=== PATIENT | male | born 1965 | race African-American/Black ===

== ENCOUNTER 2017-05-27 12:53 | Inpatient (IN) | payer OTHER ==
[2017-05-27 14:34] VITALS: BMI 24.7
--- NOTE | 2017-05-27 16:34 | HP ---
CIWA Score - CIWA Score Nausea/Vomitin-Mild Nausea/No Vomiting Muscle Tremors: 4-Moderate,w/Arms Extend Anxiety: 4-Mod. Anxious/Guarded Agitation: 4-Moderately Restless Paroxysmal Sweats: 1-Minimal Palms Moist Orientation: 0-Oriented Tacttile Disturbances: 0-None Auditory Disturbances: 0-None Visual Disturbances: 0-None Headache: 0-None Present CIWA-Ar Total Score: 14 Admission ROS S - HPI Chief Complaint: withdrawal sx Allergies/Adverse Reactions: Allergies Allergy/AdvReac Type Severity Reaction Status Date / Time shellfish derived Allergy Intermediate Rash Verified 05/27/17 16:29 No Known Drug Allergies Allergy Verified 05/27/17 16:29 shellfish Allergy Intermediate Rash Uncoded 05/27/17 16:29 History of Present Illness: 52 years old male with long history of alcohol cocaine dependence has positive ppd and depression is admitted to detox Exam Limitations: No Limitations - Ebola screening Have you traveled outside of the country in the last 21 days: No Have you had contact with anyone from an Ebola affected area: No Have you been sick,other than usual withdrawal symptoms: No Do you have a fever: No - Review of Systems Constitutional: Loss of Appetite, Unintentional Wgt. Loss, Unexplained wgt Loss EENT: reports: Blurred Vision (eye glasses) Respiratory: reports: No Symptoms reported Cardiac: reports: No Symptoms Reported GI: reports: Nausea, Poor Appetite, Poor Fluid Intake, Indigestion, Abdominal cramping : reports: No Symptoms Reported Musculoskeletal: reports: No Symptoms Reported Integumentary: reports: No Symptoms Reported Neuro: reports: Tremors Endocrine: reports: No Symptoms Reported Hematology: reports: No Symptoms Reported Psychiatric: reports: Judgement Intact, Orientated x3, Depressed Other Systems: Reviewed and Negative Patient History - Patient Medical History Hx Anemia: No Hx Asthma: No Hx Chronic Obstructive Pulmonary Disease (COPD): No Hx Cancer: No Hx Cardiac Disorders: No Hx Congestive Heart Failure: No Hx Hypertension: No Hx Hypercholesterolemia: No Hx Pacemaker: No HX Cerebrovascular Accident: No Hx Seizures: No Hx Dementia: No Hx Diabetes: No Hx Gastrointestinal Disorders: Yes Hx Liver Disease: No Hx Genitourinary Disorders: No Hx Sexually Transmitted Disorders: Yes (Treated for Syphilli in the past.) Hx Renal Disease (ESRD): No Hx Thyroid Disease: No Hx Human Immunodeficiency Virus (HIV): No (NEGATIVE HX, LAST in 01/11) Hx Hepatitis C: No Hx Depression: Yes Hx Suicide Attempt: No Hx Bipolar Disorder: No Hx Schizophrenia: No - Patient Surgical History Past Surgical History: No Hx Neurologic Surgery: No Hx Cataract Extraction: No Hx Cardiac Surgery: No Hx Lung Surgery: No Hx Breast Surgery: No Hx Breast Biopsy: No Hx Abdominal Surgery: No Hx Appendectomy: No Hx Cholecystectomy: No Hx Genitourinary Surgery: No Hx Orthopedic Surgery: No - PPD History Previous Implant?: Yes Documented Results: Positive w/o proof Implanted On Prior R Admission?: No Results: positive PPD to be Administered?: No - Smoking Cessation Smoking history: Former smoker Have you smoked in the past 12 months: No Aproximately how many cigarettes per day: 0 If you are a former smoker, when did you quit?: 2012 Cigars Per Day: 0 Hx Chewing Tobacco Use: No Initiated information on smoking cessation: No - Substance & Tx. History Hx Alcohol Use: Yes Hx Substance Use: Yes Substance Use Type: Alcohol, Cocaine Hx Substance Use Treatment: Yes (2013 [facility] - Substances Abused Alcohol Route: Oral Family Disease History - Family Disease History Family Disease History: Other: Father (), Mother (alcohol,) Admission Physical Exam BHS - Vital Signs Vital Signs: Vital Signs - 24 hr 05/27/17 14:32 Temperature 97.2 F L Pulse Rate 84 Respiratory 18 Rate Blood Pressure 123/78 - Physical General Appearance: Yes: Appropriately Dressed, Mild Distress, Thin, Tremorous, Irritable, Sweating, Anxious HEENTM: Yes: Hearing grossly Normal, Normal ENT Inspection, Normocephalic, Normal Voice Respiratory: Yes: Chest Non-Tender, Lungs Clear, Normal Breath Sounds, No Respiratory Distress, No Accessory Muscle Use Neck: Yes: Supple, Trachea in good position Breast: Yes: Breasts Symetrical Cardiology: Yes: Regular Rhythm, Regular Rate, S1, S2 Abdominal: Yes: Normal Bowel Sounds, Non Tender, Soft Genitourinary: Yes: Within Normal Limits Back: Yes: Normal Inspection Musculoskeletal: Yes: full range of Motion, Gait Steady Extremities: Yes: Normal Inspection, Normal Range of Motion, Non-Tender, Tremors Neurological: Yes: Fully Oriented, Alert, Motor Strength 5/5, Normal Response, Depressed Affect Integumentary: Yes: Warm Lymphatic: Yes: Within Normal Limits - Diagnostic (1) Alcohol dependence with uncomplicated withdrawal Current Visit: Yes Status: Acute (2) Cocaine dependence, uncomplicated Current Visit: Yes Status: Acute (3) Depression (emotion) Current Visit: Yes Status: Suspected Qualifiers: Depression Type: dysthymia Qualified Code(s): F34.1 - Dysthymic disorder (4) GERD (gastroesophageal reflux disease) Current Visit: Yes Status: Chronic Qualifiers: Esophagitis presence: without esophagitis Qualified Code(s): K21.9 - Gastro-esophageal reflux disease without esophagitis (5) Weight loss Current Visit: Yes Status: Acute (6) Positive PPD, treated Current Visit: Yes Status: Resolved Cleared for Admission BHS - Detox or Rehab B[facility] Level of Care: Medically Managed Detox Regimen/Protocol: Librium BHS Breath Alcohol Content Breath Alcohol Content: 0 Vital Signs - Vital Signs Vital Signs Refused: No Temperature: 97.2 F Temperature Source: Oral Pulse Rate: 84 Respiratory Rate: 18 Blood Pressure: 123/78 BP Location: Left Arm Blood Pressure Position: Sitting - Height Height: 5 ft 3 in - Weight Weight: 140 lb Weight Measurement Method: Standing Scale Body Mass Index (BMI): 24.7 - Bowel Function Bowel Movement: Yes Urine Drug Screen - Control Is Test Valid: Yes - Results Drug Screen Negative: No Urine Drug Screen Results: TRACEY-Cocaine
[2017-05-27] MEDS ORDERED: ACETAMINOPHEN 325 MG TABLET (FP) PO PRN (16:38)
[2017-05-27] MEDS ORDERED: MAG HYDROX/AL HYDROX/SIMETH 30 ML UNIT-DOSE CUP PO PRN (16:38)
[2017-05-27] MEDS ORDERED: LOPERAMIDE HCL 2 MG CAPSULE PO PRN (16:38)
[2017-05-27] MEDS ORDERED: MENTHOL/PHENOL 1 EACH UD MM PRN (16:38)
[2017-05-27] MEDS ORDERED: P-EPHED 60MG/TRIPROLIDI 2.5MG TABLET PO PRN (16:38)
[2017-05-27] MEDS ORDERED: chlordiazePOXIDE HCL 25 MG CAPSULE PO PRN (16:38)
[2017-05-27] MEDS ORDERED: hydrOXYzine PAMOATE 50 MG CAPSULE (FP) PO PRN (16:38)
[2017-05-27] MEDS ORDERED: MAGNESIUM HYDROX 2400MG/30ML ORAL SUSPENSION 30 ML CUP PO PRN (16:38)
[2017-05-27] MEDS ORDERED: guaiFENesin/D-METHORPHAN HB 10 ML UNIT-DOSE CUPS PO PRN (16:38)
[2017-05-27] MEDS ORDERED: diphenhydrAMINE HCL 50 MG CAPSULE PO PRN (16:38)
[2017-05-27] MEDS ORDERED: MAGNESIUM CITRATE 300 ML BOTTLE PO PRN (16:38)
[2017-05-27] MEDS: RANITIDINE HCL 150 MG TABLET (FP) PO SCH (22:48)
[2017-05-27] MEDS: THIAMINE HCL 100 MG TABLET (FP) PO SCH (22:48)
[2017-05-27] MEDS: chlordiazePOXIDE HCL 25 MG CAPSULE PO SCH (22:48)
[2017-05-28] MEDS: chlordiazePOXIDE HCL 25 MG CAPSULE PO SCH ×4 (06:02→22:54)
[2017-05-28 10:13] LABS: ALBUMIN 3.1 g/dl (3.4-5.0); ALK PHOS 99 U/L (45-117); ANION GAP 11 (8-16); BILIRUBIN,TOTAL 0.4 mg/dL (0.2-1.0); CALCIUM 8.4 mg/dL (8.5-10.1); CO2 27 mmol/L (21-32); CREATININE 1.1 mg/dL (0.7-1.3); GLUCOSE,RANDOM 145 mg/dL (74-106); SGOT/AST 16 U/L (15-37); SGPT/ALT 20 U/L (12-78); TOT PROT 6.3 g/dl (6.4-8.2)
[2017-05-28 10:15] LABS: MCH 31.1 pg (25.7-33.7); MCHC 33.7 g/dl (32.0-35.9); MEAN CELL VOLUME 92.5 fl (80-96); MEAN PLT VOLUME 10.5 fl (7.5-11.1); PLATELET COUNT 113 K/MM3 (134-434); RDW 13.5 % (11.9-15.9); WHITE BLOOD COUNT 4.4 K/mm3 (4.0-10.0)
[2017-05-28] MEDS: PRENATAL VITAMINS W/ FOLIC ACID TABLET (FP) PO SCH (10:47)
[2017-05-28] MEDS: RANITIDINE HCL 150 MG TABLET (FP) PO SCH ×2 (10:48→22:54)
[2017-05-28 11:36] LABS: HIV 1 & 2 AB NEGATIVE; HIV 1 AGp24 NEGATIVE
--- NOTE | 2017-05-28 11:40 | PN ---
[facility] CIWA - CIWA Score Nausea/Vomitin-No Nausea/No Vomiting Muscle Tremors: 4-Moderate,w/Arms Extend Anxiety: 4-Mod. Anxious/Guarded Agitation: 4-Moderately Restless Paroxysmal Sweats: 1-Minimal Palms Moist Orientation: 0-Oriented Tacttile Disturbances: 3-Moderate Itch/Numb/Burn Auditory Disturbances: 0-None Visual Disturbances: 0-None Headache: 0-None Present CIWA-Ar Total Score: 16 S Progress Note (SOAP) Subjective: ANXIETY,SWEATS, SEEN LAYING CALM IN BED. ALERT O X 3. Objective: 05/28/17 11:36 Vital Signs Temperature 98.8 F 05/28/17 09:33 Pulse Rate 90 05/28/17 09:33 Respiratory Rate 18 05/28/17 09:33 Blood Pressure 125/79 05/28/17 09:33 O2 Sat by Pulse Oximetry (%) Laboratory Last Values WBC 4.4 K/mm3 (4.0-10.0) 05/28/17 07:00 RBC 4.48 M/mm3 (4.00-5.60) 05/28/17 07:00 Hgb 13.9 GM/dL (11.7-16.9) 05/28/17 07:00 Hct 41.4 % (35.4-49) 05/28/17 07:00 MCV 92.5 fl (80-96) 05/28/17 07:00 MCH 31.1 pg (25.7-33.7) 05/28/17 07:00 MCHC 33.7 g/dl (32.0-35.9) 05/28/17 07:00 RDW 13.5 % (11.9-15.9) 05/28/17 07:00 Plt Count 113 K/MM3 (134-434) L 05/28/17 07:00 MPV 10.5 fl (7.5-11.1) 05/28/17 07:00 Sodium 144 mmol/L (136-145) 05/28/17 07:00 Potassium 3.4 mmol/L (3.5-5.1) L 05/28/17 07:00 Chloride 106 mmol/L (98-107) 05/28/17 07:00 Carbon Dioxide 27 mmol/L (21-32) 05/28/17 07:00 Anion Gap 11 (8-16) 05/28/17 07:00 BUN 14 mg/dL (7-18) 05/28/17 07:00 Creatinine 1.1 mg/dL (0.7-1.3) D 05/28/17 07:00 Creat Clearance w eGFR > 60 (>60) 05/28/17 07:00 Random Glucose 145 mg/dL (74-106) H D 05/28/17 07:00 Calcium 8.4 mg/dL (8.5-10.1) L 05/28/17 07:00 Total Bilirubin 0.4 mg/dL (0.2-1.0) 05/28/17 07:00 AST 16 U/L (15-37) 05/28/17 07:00 ALT 20 U/L (12-78) D 05/28/17 07:00 Alkaline Phosphatase 99 U/L (45-117) 05/28/17 07:00 Total Protein 6.3 g/dl (6.4-8.2) L 05/28/17 07:00 Albumin 3.1 g/dl (3.4-5.0) L 05/28/17 07:00 K+ = 3.4 GLC = 145 UA PENDING Assessment: 05/28/17 11:38 WITHDRAWAL SX BORDERLINE HYPOKALEMIA Plan: CONTINUE DETOX KDUR DIRECTED
[2017-05-28] MEDS ORDERED: POTASSIUM CHLORIDE TABS 20 MEQ TABLET.ER (FP) PO ONE (12:15)
--- NOTE | 2017-05-28 12:45 | CONSULT ---
[facility] Psychiatric Consult - Data Date of interview: 05/28/17 Admission source: [facility] Identifying data: Patient is approached at bedside for psychiatric interview.He refused.Nursing staff is made aware.
[2017-05-28 22:12] LABS: URINE APPEARANCE CLEAR; URINE BILIRUBIN NEGATIVE (NEGATIVE); URINE BLOOD NEGATIVE (NEGATIVE); URINE COLOR LTYELLOW; URINE GLUCOSE (UA) NEGATIVE (NEGATIVE); URINE KETONE NEGATIVE (NEGATIVE); URINE LEUK ESTERASE NEGATIVE (NEGATIVE); URINE NITRITE NEGATIVE (NEGATIVE); URINE PROTEIN NEGATIVE (NEGATIVE); URINE UROBILINOGEN NEGATIVE mg/dL (0.2-1.0)
[2017-05-28] MEDS: THIAMINE HCL 100 MG TABLET (FP) PO SCH (22:54)
[2017-05-29] MEDS: chlordiazePOXIDE HCL 25 MG CAPSULE PO SCH ×3 (05:55→17:59)
[2017-05-29] MEDS: RANITIDINE HCL 150 MG TABLET (FP) PO SCH ×2 (11:09→23:28)
[2017-05-29] MEDS: POTASSIUM CHLORIDE TABS 20 MEQ TABLET.ER (FP) PO SCH (11:09)
[2017-05-29] MEDS: PRENATAL VITAMINS W/ FOLIC ACID TABLET (FP) PO SCH (11:09)
--- NOTE | 2017-05-29 12:36 | PN ---
[facility] CIWA - CIWA Score Nausea/Vomitin-No Nausea/No Vomiting Muscle Tremors: 4-Moderate,w/Arms Extend Anxiety: 4-Mod. Anxious/Guarded Agitation: 4-Moderately Restless Paroxysmal Sweats: 1-Minimal Palms Moist Orientation: 0-Oriented Tacttile Disturbances: 3-Moderate Itch/Numb/Burn Auditory Disturbances: 0-None Visual Disturbances: 0-None Headache: 0-None Present CIWA-Ar Total Score: 16 S Progress Note (SOAP) Subjective: ANXIETY, SWEATS, FATIGUE. Objective: 05/29/17 12:35 Vital Signs Temperature 97.7 F 05/29/17 10:18 Pulse Rate 89 05/29/17 10:18 Respiratory Rate 18 05/29/17 10:18 Blood Pressure 145/95 05/29/17 10:18 O2 Sat by Pulse Oximetry (%) Laboratory Last Values WBC 4.4 K/mm3 (4.0-10.0) 05/28/17 07:00 RBC 4.48 M/mm3 (4.00-5.60) 05/28/17 07:00 Hgb 13.9 GM/dL (11.7-16.9) 05/28/17 07:00 Hct 41.4 % (35.4-49) 05/28/17 07:00 MCV 92.5 fl (80-96) 05/28/17 07:00 MCH 31.1 pg (25.7-33.7) 05/28/17 07:00 MCHC 33.7 g/dl (32.0-35.9) 05/28/17 07:00 RDW 13.5 % (11.9-15.9) 05/28/17 07:00 Plt Count 113 K/MM3 (134-434) L 05/28/17 07:00 MPV 10.5 fl (7.5-11.1) 05/28/17 07:00 Sodium 144 mmol/L (136-145) 05/28/17 07:00 Potassium 3.4 mmol/L (3.5-5.1) L 05/28/17 07:00 Chloride 106 mmol/L (98-107) 05/28/17 07:00 Carbon Dioxide 27 mmol/L (21-32) 05/28/17 07:00 Anion Gap 11 (8-16) 05/28/17 07:00 BUN 14 mg/dL (7-18) 05/28/17 07:00 Creatinine 1.1 mg/dL (0.7-1.3) D 05/28/17 07:00 Creat Clearance w eGFR > 60 (>60) 05/28/17 07:00 POC Glucometer 119 UNITS (()) 05/29/17 05:57 Random Glucose 145 mg/dL (74-106) H D 05/28/17 07:00 Calcium 8.4 mg/dL (8.5-10.1) L 05/28/17 07:00 Total Bilirubin 0.4 mg/dL (0.2-1.0) 05/28/17 07:00 AST 16 U/L (15-37) 05/28/17 07:00 ALT 20 U/L (12-78) D 05/28/17 07:00 Alkaline Phosphatase 99 U/L (45-117) 05/28/17 07:00 Total Protein 6.3 g/dl (6.4-8.2) L 05/28/17 07:00 Albumin 3.1 g/dl (3.4-5.0) L 05/28/17 07:00 Urine Color Ltyellow 05/28/17 21:30 Urine Appearance Clear 05/28/17 21:30 Urine pH 7.0 (5.0-8.0) D 05/28/17 21:30 Ur Specific [place] 1.015 (1.005-1.025) 05/28/17 21:30 Urine Protein Negative (NEGATIVE) 05/28/17 21:30 Urine Glucose (UA) Negative (NEGATIVE) 05/28/17 21:30 Urine Ketones Negative (NEGATIVE) 05/28/17 21:30 Urine Blood Negative (NEGATIVE) 05/28/17 21:30 Urine Nitrite Negative (NEGATIVE) 05/28/17 21:30 Urine Bilirubin Negative (NEGATIVE) 05/28/17 21:30 Urine Urobilinogen Negative mg/dL (0.2-1.0) 05/28/17 21:30 Ur Leukocyte Esterase Negative (NEGATIVE) 05/28/17 21:30 RPR Titer Nonreactive (NONREACTIVE) 05/28/17 07:00 HIV 1&2 Antibody Screen Negative 05/28/17 07:00 HIV P24 Antigen Negative 05/28/17 07:00 Assessment: 05/29/17 12:35 WITHDRAWAL SX Plan: CONTINUE DETOX
[2017-05-29] MEDS: chlordiazePOXIDE 5 MG CAPSULE PO SCH (23:28)
[2017-05-29] MEDS: THIAMINE HCL 100 MG TABLET (FP) PO SCH (23:28)
[2017-05-30] MEDS: chlordiazePOXIDE 5 MG CAPSULE PO SCH ×2 (06:21→10:58)
[2017-05-30 09:06] VITALS: BP 131/87; PULSE 86; TEMP 96.2
[2017-05-30] MEDS: RANITIDINE HCL 150 MG TABLET (FP) PO SCH (10:58)
[2017-05-30] MEDS: PRENATAL VITAMINS W/ FOLIC ACID TABLET (FP) PO SCH (10:58)
[2017-05-30] MEDS: POTASSIUM CHLORIDE TABS 20 MEQ TABLET.ER (FP) PO SCH (10:58)
--- NOTE | 2017-05-30 11:37 | EKG ---
Test Reason : Blood Pressure : / mmHG Vent. Rate : 056 BPM Atrial Rate : 056 BPM P-R Int : 184 ms QRS Dur : 092 ms QT Int : 402 ms P-R-T Axes : 039 090 050 degrees QTc Int : 387 ms SINUS BRADYCARDIA RIGHTWARD AXIS BORDERLINE ECG NO PREVIOUS ECGS AVAILABLE Confirmed by OLY NIÑO MD ([id number]) on 05/30/2017 11:37:10 AM Referred By: Confirmed By:OLY NIÑO MD
--- NOTE | 2017-05-30 11:42 | PN ---
[facility] Progress Note (SOAP) Subjective: ANXIETY,AGITATIONS,RESTLESSNESS. Objective: 05/30/17 11:36 Vital Signs 05/30/17 05/30/17 05/30/17 04:13 06:58 09:05 Temperature 97.4 F L 96.2 F L Pulse Rate 93 H 86 Respiratory 18 18 18 Rate Blood Pressure 144/90 131/87 Laboratory Last Values WBC 4.4 K/mm3 (4.0-10.0) 05/28/17 07:00 RBC 4.48 M/mm3 (4.00-5.60) 05/28/17 07:00 Hgb 13.9 GM/dL (11.7-16.9) 05/28/17 07:00 Hct 41.4 % (35.4-49) 05/28/17 07:00 MCV 92.5 fl (80-96) 05/28/17 07:00 MCH 31.1 pg (25.7-33.7) 05/28/17 07:00 MCHC 33.7 g/dl (32.0-35.9) 05/28/17 07:00 RDW 13.5 % (11.9-15.9) 05/28/17 07:00 Plt Count 113 K/MM3 (134-434) L 05/28/17 07:00 MPV 10.5 fl (7.5-11.1) 05/28/17 07:00 Sodium 144 mmol/L (136-145) 05/28/17 07:00 Potassium 3.4 mmol/L (3.5-5.1) L 05/28/17 07:00 Chloride 106 mmol/L (98-107) 05/28/17 07:00 Carbon Dioxide 27 mmol/L (21-32) 05/28/17 07:00 Anion Gap 11 (8-16) 05/28/17 07:00 BUN 14 mg/dL (7-18) 05/28/17 07:00 Creatinine 1.1 mg/dL (0.7-1.3) D 05/28/17 07:00 Creat Clearance w eGFR > 60 (>60) 05/28/17 07:00 POC Glucometer 113 UNITS (()) 05/30/17 06:18 Random Glucose 145 mg/dL (74-106) H D 05/28/17 07:00 Calcium 8.4 mg/dL (8.5-10.1) L 05/28/17 07:00 Total Bilirubin 0.4 mg/dL (0.2-1.0) 05/28/17 07:00 AST 16 U/L (15-37) 05/28/17 07:00 ALT 20 U/L (12-78) D 05/28/17 07:00 Alkaline Phosphatase 99 U/L (45-117) 05/28/17 07:00 Total Protein 6.3 g/dl (6.4-8.2) L 05/28/17 07:00 Albumin 3.1 g/dl (3.4-5.0) L 05/28/17 07:00 Urine Color Ltyellow 05/28/17 21:30 Urine Appearance Clear 05/28/17 21:30 Urine pH 7.0 (5.0-8.0) D 05/28/17 21:30 Ur Specific [place] 1.015 (1.005-1.025) 05/28/17 21:30 Urine Protein Negative (NEGATIVE) 05/28/17 21:30 Urine Glucose (UA) Negative (NEGATIVE) 05/28/17 21:30 Urine Ketones Negative (NEGATIVE) 05/28/17 21:30 Urine Blood Negative (NEGATIVE) 05/28/17 21:30 Urine Nitrite Negative (NEGATIVE) 05/28/17 21:30 Urine Bilirubin Negative (NEGATIVE) 05/28/17 21:30 Urine Urobilinogen Negative mg/dL (0.2-1.0) 05/28/17 21:30 Ur Leukocyte Esterase Negative (NEGATIVE) 05/28/17 21:30 RPR Titer Nonreactive (NONREACTIVE) 05/28/17 07:00 HIV 1&2 Antibody Screen Negative 05/28/17 07:00 HIV P24 Antigen Negative 05/28/17 07:00 Assessment: 05/30/17 11:37 WITHDRAWAL SX Plan: CONTINUE DETOX. PT ENCOURAGED TO FOLLOW UP WITH PMD TO MONITOR BLOOD SUGAR.
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
[2017-05-30] MEDS ORDERED: chlordiazePOXIDE HCL 10 MG CAPSULE PO SCH (23:00)
== END 2017-05-30 12:37 | disposition home or self-care (01) | DRG 774 ==
LOC: YASAS 12:53 → Y3N 18:26
PROVIDERS: ADMIT Internal Medicine Addiction Medicine; ATTEND Internal Medicine
PROC: HZ2ZZZZ Detoxification Services for Substance Abuse Treatment (ICD-10-PCS; principal; 2017-05-27)
DX: F10.230 Alcohol dependence with withdrawal, uncomplicated (principal); F14.20 Cocaine dependence, uncomplicated; F17.213 Nicotine dependence, cigarettes, with withdrawal; K21.9 Gastro-esophageal reflux disease without esophagitis; E87.6 Hypokalemia; R76.11 Nonspecific reaction to tuberculin skin test without active tuberculosis; Z87.898 Personal history of other specified conditions; Z91.013 Allergy to seafood; Z87.438 Personal history of other diseases of male genital organs
CPT/HCPCS: 36415; 71020-TC; 80053; 81003; 85027; 86593; 87389; 93005; 93010